=== PATIENT | male | born 1960 | race Caucasian/White ===

== ENCOUNTER 2023-12-10 13:46 | Outpatient (REF) | payer BC, SELFPAY ==
[2023-12-10 14:35] LABS: HCT 39.1 % (40.0-50.0); HGB 12.5 g/dL (13.5-17.5); MCH 28.5 pg (27.0-33.0); MCV 89 fL (80-95); MPV 10.1 fL (8.0-11.0); Platelet Count 256 10^3/uL (130-400); RBC 4.39 10^6/uL (4.36-5.78); RDW 12.2 % (11.8-14.1); RDW-SD 40.2 fL; WBC 6.52 10^3/uL (4.4-10.8)
[2023-12-10 14:55] LABS: Anion Gap 6.3 mmol/L (3-11); BUN 17 mg/dL (7-18); CO2 29.7 mmol/L (21.0-32.0); CREATININE 0.9 mg/dL (0.70-1.30); Calculated LDL 158 mg/dL (<100); Chloride 104 mmol/L (98-107); Cholesterol 255 mg/dL (<200); Estimated GFR 96.57 (mL/min/1.73m2); Glucose 97 mg/dL (74-106); HDL Cholesterol 91 mg/dL (40-60); Potassium 4.5 mmol/L (3.5-5.1); Sodium 140 mmol/L (136-145); Triglyceride 32 mg/dL (<150)
[2023-12-10 22:44] LABS: PSA, Screening 1.8 ng/mL (<=4.5)
== END 2023-12-10 13:47 | disposition home or self-care (01) ==
LOC: NCHCN 13:46
PROVIDERS: PCP Family Medicine; Visit Provider Internal Medicine
DX: Z00.00 Encounter for general adult medical examination without abnormal findings (principal); Z12.5 Encounter for screening for malignant neoplasm of prostate
CPT/HCPCS: 80048; 80061; 84153; 85027

== ENCOUNTER 2024-12-15 11:29 | Outpatient (REF) | payer BC, SELFPAY ==
[2024-12-15 14:51] LABS: HCT 39.5 % (40.0-50.0); HGB 12.7 g/dL (13.5-17.5); MCH 27.9 pg (27.0-33.0); MCHC 32.2 % (32.0-36.0); MCV 87 fL (80-95); MPV 10.2 fL (8.0-11.0); Platelet Count 293 10^3/uL (130-400); RBC 4.55 10^6/uL (4.36-5.78); RDW 12.6 % (11.8-14.1); RDW-SD 39.8 fL; WBC 8.65 10^3/uL (4.4-10.8)
[2024-12-15 15:14] LABS: Anion Gap 8.2 mmol/L (3-11); BUN 22 mg/dL (7-18); CO2 28.8 mmol/L (21.0-32.0); Calcium 9.4 mg/dL (8.5-10.1); Calculated LDL 138 mg/dL (<100); Chloride 103 mmol/L (98-107); Cholesterol 231 mg/dL (<200); Estimated GFR 84.57 (mL/min/1.73m2); Glucose 115 mg/dL (74-106); HDL Cholesterol 84 mg/dL (>or=40); Potassium 3.7 mmol/L (3.5-5.1); Sodium 140 mmol/L (136-145); Triglyceride 47 mg/dL (<150)
== END 2024-12-15 11:30 | disposition home or self-care (01) ==
LOC: NCHCN 11:29
PROVIDERS: PCP Family Medicine; Visit Provider Internal Medicine
DX: D64.9 Anemia, unspecified (principal); E78.5 Hyperlipidemia, unspecified
CPT/HCPCS: 80048; 80061; 85027

== ENCOUNTER 2024-12-22 15:38 | Outpatient (REF) | payer BC, SELFPAY ==
[2024-12-22 16:08] LABS: ALT 30 U/L (16-63); AST 27 U/L (15-37); Albumin 3.4 g/dL (3.4-5.0); Alkaline Phosphatase 94 U/L (46-116); Bilirubin, Direct 0.1 mg/dL (0.0-0.2); Bilirubin, Total 0.3 mg/dL (0.2-1.0); Ferritin 223 ng/mL (26-388); Total Protein 7.5 g/dL (6.4-8.2)
[2024-12-22 17:27] LABS: Hemoglobin A1C 5.6 % (<5.7)
[2024-12-23 03:43] LABS: Vitamin B12 313 pg/mL (193-986)
[2024-12-23 15:19] LABS: Iron 54 ug/dL (65-175); Total Iron Binding Capacity 263 ug/dL (250-450); Transferrin Sat 21 % (20-55)
== END 2024-12-22 15:39 | disposition home or self-care (01) ==
LOC: NCHCN 15:38
PROVIDERS: PCP Family Medicine; Visit Provider Internal Medicine
DX: D64.9 Anemia, unspecified (principal); R73.01 Impaired fasting glucose
CPT/HCPCS: 80076; 82784; 83516; 82607; 82728; 83036; 83540; 83550